=== PATIENT | male | born 1975 | race Caucasian/White ===

== ENCOUNTER 2023-11-29 06:51 | Day surgery (SDC) | payer OTHER ==
[2023-11-29] VITALS (9 sets, daily range): BP systolic 92–141; BP diastolic 54–103
[~2023-11-29] VITALS: Ht 175.3 cm; Wt 100.0 kg
[~2023-11-29 06:51] MED LIST: ALBU90OI INH; CILO100 PO; Flovent 220 Ora12 GM INH; GEMF600 PO; IPRAT-ALBUT 0.5-3 ML NEB; LISI20 PO; MARIJUANA INH; Robaxin750 MG PO
[2023-11-29] MEDS ORDERED: IBUP800 PO (07:37)
--- NOTE | 2023-11-29 10:20 | NUR ---
ASSUMED CARE OF PT POST PROCEDURE. PT AWAKE AND ORIENTED, CONVERSING APPROPRIATELY; DENIES PAIN POST PROCEDURE. MONITOR SR 70'S, B/P 141/88, SPO2 97% RA, AFEBRILE. R GROIN NO SWELLING/HEMATOMA, TEGADERM DRSG INTACT; RLE PULSES 2+ X 2, ANGIO SEAL DEPLOYED. L GROIN NO SWELLING/HEMATOMA, TEGADERM DRSG INTACT; LLE PULSES 2+ X 2, ANGIO SEAL DEPLOYED.
[2023-11-29] MEDS ORDERED: CLOP75 PO (10:25)
--- NOTE | 2023-11-29 11:35 | NUR ---
HOB ELEVATED, SITES REMAIN UNCHANGED.
--- NOTE | 2023-11-29 12:45 | NUR ---
PT AMB TO BATHROOM, GAIT STEADY; SITES UNCHANGED.
--- NOTE | 2023-11-29 12:55 | NUR ---
PT DRESSED SELF WITHOUT ISSUE, SITES UNCHANGED; IV REMOVED-CANNULA INTACT.
--- NOTE | 2023-11-29 13:03 | NUR ---
PT RECEIVED DISCHARGE INSTRUCTIONS, MED LIST AND AFTER CARE INSTRUCTIONS; VERBALIZED GOOD UNDERSTANDING. PT LEFT FACILITY VIA W/C, CONDITION STABLE.
== END 2023-11-29 13:03 | disposition home or self-care (01) ==
LOC: MHTC 06:51
DX: I77.1 Stricture of artery (principal); I73.9 Peripheral vascular disease, unspecified; Z88.2 Allergy status to sulfonamides; Z88.8 Allergy status to other drugs, medicaments and biological substances; Z87.891 Personal history of nicotine dependence; Z79.899 Other long term (current) drug therapy
CPT/HCPCS: 37221; 37246; 37252; 75625; 75716; 76937; 85347; 93005; 93010; 99152; 99153; C1725; C1753; C1760; C1769; C1876; C1887; C1894; J1644; J2250; J3010; J7030; J7050; Q9967